=== PATIENT | male | born 1930 | race Caucasian/White ===

== ENCOUNTER → 2017-03-26 | Day surgery (SDC) | payer MEDICARE, BC ==
[~2017-03-26] VITALS: Ht 185.4 cm; Wt 93.0 kg
[~2017-03-26] MED LIST: ALPRAZOLAM0.5 M1 PO; ATIVAN0.5 MG PO; COZAAR50 M1 PO; CYMBALTA60 MG PO; Diltiazem180 MG PO; ELIQUIS2.5 M1 PO; ELIQUIS5 M1 PO; FLOMAX0.4 MG PO; LOPRESSOR100 M1 PO; METFORMIN500 MG PO; OXYBUTYNIN CHLOR5 MG PO; RANITIDINE HCL150 M1 PO; TOPROL XL100 MG PO; VITAMIN D50000 UNIT PO
--- NOTE | ~2017-03-26 | O ---
[place], [place] OPERATIVE NOTE NAME: ADWOA TOUSSAINT UNIT #: [id number] ROOM: DOCTOR: DEVIN MORGAN MD BIRTHDATE: [birth year] DOS: 03/26/2017 PREOPERATIVE DIAGNOSIS: Cataract, right eye. POSTOPERATIVE DIAGNOSIS: Cataract, right eye. OPERATION: Extracapsular cataract extraction by phacoemulsification with posterior chamber intraocular lens implantation, right eye. ANESTHESIA: Monitored standby. OPERATIVE FINDINGS AND PROCEDURE: 2% Xylocaine topical anesthetic gel was applied to the eye in the preop area. The patient was taken to the operating room and prepped and draped in the standard fashion for sterile intraocular surgery. A time out procedure was performed verifying correct patient, correct site and corrects lens with Payam Morgan M.D. The operating microscope was swung into position and the lid speculum was inserted. Using a Radha paracentesis blade, a paracentesis was made through clear cornea. Viscoelastic was used to fill the anterior chamber. Using a metal keratome a 2.4 mm self-sealing clear corneal cataract incision was made temporally at the limbus. Using a pre-bent 25 gauge cystotome needle, a standard continuous curvilinear capsulorrhexis was performed. The anterior capsule was removed with forceps. The lens nucleus was hydrodissected and phacoemulsified in the posterior chamber. Cortical material was removed with the irrigation aspiration hand piece and the posterior capsule was then polished with a curet under irrigation. The posterior chamber and capsular bag were filled with viscoelastic. A posterior chamber intraocular lens manufactured by: [employer], Model #[id number], and 14.0 diopters right eye in strength were then inserted into the posterior chamber and within the capsular bag using the lens cartridge and injector system. Viscoelastic was removed using the irrigation aspiration handpiece. The anterior chamber was filled with balanced salt solution through the paracentesis. Both the paracentesis site and cataract incisions were hydrated with BSS and verified to be water-tight and self-sealing. Cefuroxime 1 mg/1 mL was injected into the anterior chamber through the paracentesis site. The incision checked to be water-tight using a Weck-Darling sponge. The integrity of the cataract wound and ocular tension were checked. Lid speculum and drapes were removed. The patient was transferred from the operating room to the recovery room in satisfactory condition. [place], [place] OPERATIVE NOTE NAME: ADWOA TOUSSAINT UNIT #: [id number] ROOM: DOCTOR: DEVIN MORGAN MD BIRTHDATE: [birth year] DEVIN MORGAN MD CM:OPRECORD:OPERATIVE NOTE [id number] DEVIN MORGAN MD 03/26/17 1330 interface
[2017-03-26 09:40] VITALS: BP 133/86
[2017-03-26 10:48] VITALS: BP 131/82
[2017-03-26 11:03] VITALS: BP 122/74
[2017-03-26 11:17] VITALS: BP 124/64
== END | disposition home or self-care (01) ==
LOC: SDC 03-24 13:15
DX: H26.9 Unspecified cataract (principal); I10 Essential (primary) hypertension; F41.9 Anxiety disorder, unspecified; I48.91 Unspecified atrial fibrillation; E11.9 Type 2 diabetes mellitus without complications; J44.9 Chronic obstructive pulmonary disease, unspecified; J45.909 Unspecified asthma, uncomplicated

== ENCOUNTER → 2017-04-30 | Day surgery (SDC) | payer MEDICARE, BC ==
[~2017-04-30] VITALS: Ht 182.8 cm; Wt 93.0 kg
--- NOTE | ~2017-04-30 | O ---
[place], [place] OPERATIVE NOTE [facility]SSAINT [id number] UN[facility] #: [id number] ROOM: DOCTOR: DEVIN MORGAN MD BIRTHDATE: [birth year] DOS: 04/30/2017 PREOPERATIVE DIAGNOSIS: Cataract, left eye. POSTOPERATIVE DIAGNOSIS: Cataract, left eye. OPERATION: Extracapsular cataract extraction by phacoemulsification with posterior chamber intraocular lens implantation, left eye. ANESTHESIA: Monitored standby. OPERATIVE FINDINGS AND PROCEDURE: 2% Xylocaine topical anesthetic gel was applied to the eye in the preop area. The patient was taken to the operating room and prepped and draped in the standard fashion for sterile intraocular surgery. A time out procedure was performed verifying correct patient, correct site and corrects lens with Payam Morgan M.D. The operating microscope was swung into position and the lid speculum was inserted. Using a Radha paracentesis blade, a paracentesis was made through clear cornea. Viscoelastic was used to fill the anterior chamber. Using a metal keratome a 2.4 mm self-sealing clear corneal cataract incision was made temporally at the limbus. Using a pre-bent 25 gauge cystotome needle, a standard continuous curvilinear capsulorrhexis was performed. The anterior capsule was removed with forceps. The lens nucleus was hydrodissected and phacoemulsified in the posterior chamber. Cortical material was removed with the irrigation aspiration hand piece and the posterior capsule was then polished with a curet under irrigation. The posterior chamber and capsular bag were filled with viscoelastic. A posterior chamber intraocular lens manufactured by: [employer]rett intraocular lens, Model #[id number], and 1530 diopters, left eye in strength were then inserted into the posterior chamber and within the capsular bag using the lens cartridge and injector system. Viscoelastic was removed using the irrigation aspiration handpiece. The anterior chamber was filled with balanced salt solution through the paracentesis. Both the paracentesis site and cataract incisions were hydrated with BSS and verified to be water-tight and self-sealing. Cefuroxime 1 mg/0.1 mL was injected into the anterior chamber through the paracentesis site. The incision checked to be water-tight using a Weck-Darling sponge. The integrity of the cataract wound and ocular tension were checked. Lid speculum and drapes were removed. The patient was transferred from the operating room to the recovery room in satisfactory condition. [place], [place] OPERATIVE NOTE NAME: ADWOA TOUSSAINT UNIT #: [id number] ROOM: DOCTOR: DEVIN MORGAN MD BIRTHDATE: [birth year] DEVIN MORGAN MD CM:OPRECORD:OPERATIVE NOTE [id number] DEVIN MORGAN MD 04/30/17 1530 interface
[2017-04-30 09:48] VITALS: BP 120/83
[2017-04-30 11:12] VITALS: BP 136/78
[2017-04-30 11:27] VITALS: BP 136/75
[2017-04-30 11:42] VITALS: BP 145/86
== END | disposition home or self-care (01) ==
LOC: SDC 04-25 08:00
DX: H26.9 Unspecified cataract (principal); I10 Essential (primary) hypertension; E11.9 Type 2 diabetes mellitus without complications; J45.909 Unspecified asthma, uncomplicated; I48.91 Unspecified atrial fibrillation; F41.9 Anxiety disorder, unspecified; Z98.890 Other specified postprocedural states; Z85.828 Personal history of other malignant neoplasm of skin

== ENCOUNTER → 2017-06-18 | Outpatient (CLI) | payer MEDICARE, BC | END | disposition home or self-care (01) | LOC: CARD 02:18 | DX: I08.1 Rheumatic disorders of both mitral and tricuspid valves (principal) ==

== ENCOUNTER → 2017-07-29 | Outpatient (CLI) | payer MEDICARE, BC ==
[2017-07-29 14:13] LABS: HEMATOCRIT 37.5 % (42.0-52.0); HEMOGLOBIN 12.1 g/dl (14.0-18.0); MEAN CORPUSCULAR HGB 29.4 pg (27.0-31.0); MEAN CORPUSCULAR HGB CONC 32.3 g/dl (33.0-37.0); MEAN PLATELET VOLUME 9.2 fl (9.6-12.3); NUCLEATED RED BLOOD CELL 0.1 10*3/uL (0.0-0.0); NUCLEATED RED BLOOD CELL 1.3 % (0.0-0.0); PLATELET COUNT AUTOMATED 324 10*3/uL (130-400); RED BLOOD COUNT 4.12 10*6/uL (4.50-5.90); WHITE BLOOD COUNT 6.2 10*3/uL (4.8-10.8)
[2017-07-29 14:36] LABS: ALBUMIN 3.7 gm/dl (3.1-4.5); CREATININE 1.57 mg/dL (0.70-1.30); POTASSIUM 4.2 mmol/L (3.5-5.1); TOTAL PROTEIN 6.6 gm/dL (6.4-8.2)
[2017-07-29 14:37] LABS: PLATELET SUFFICIENCY NORMAL (NORMAL); TOTAL CELLS COUNTED 100 #CELLS
[2017-07-29 14:39] LABS: POLYCHROMASIA SLIGHT
[2017-07-29 14:57] LABS: BILIRUBIN NEGATIVE (NEGATIVE); BLOOD 3+ (NEGATIVE); CLARITY SL CLOUDY (CLEAR); COLOR YELLOW (YELLOW); GLUCOSE NEGATIVE (NEGATIVE); KETONE NEGATIVE (NEGATIVE); LEUKO ESTERASE TRACE (NEGATIVE); NITRITE NEGATIVE (NEGATIVE); PH 5.5 (5.0-9.0); SPECIFIC GRAVITY 1.025 (1.005-1.030); UROBILINOGEN 0.2 E.U./dl (0.2-1.0)
[2017-07-29 15:09] LABS: RBC TNTC rbc/hpf (0-2)
[2017-07-29 15:11] LABS: BACTERIA TRACE
== END | disposition home or self-care (01) ==
LOC: LAB 13:34 → CT 14:00
PROVIDERS: Urology
DX: Z12.5 Encounter for screening for malignant neoplasm of prostate (principal); N20.0 Calculus of kidney; K57.30 Diverticulosis of large intestine without perforation or abscess without bleeding; D40.0 Neoplasm of uncertain behavior of prostate; I48.91 Unspecified atrial fibrillation; N39.0 Urinary tract infection, site not specified; M47.896 Other spondylosis, lumbar region

== ENCOUNTER → 2018-03-03 | Outpatient (CLI) | payer MEDICARE, BC | END | disposition home or self-care (01) | LOC: RAD 03:56 | DX: R06.02 Shortness of breath (principal) ==

== ENCOUNTER → 2018-10-22 | Outpatient (CLI) | payer MEDICARE, BC ==
[2018-10-22 09:07] LABS: HEMATOCRIT 39.3 % (42.0-52.0); HEMOGLOBIN 12.1 g/dl (14.0-18.0); MEAN CELL VOLUME 91.8 fl (80.0-94.0); MEAN CORPUSCULAR HGB 28.3 pg (27.0-31.0); MEAN CORPUSCULAR HGB CONC 30.8 g/dl (33.0-37.0); MEAN PLATELET VOLUME 9.8 fl (9.6-12.3); NUCLEATED RED BLOOD CELL 0.1 10*3/uL (0.0-0.0); NUCLEATED RED BLOOD CELL 2.1 % (0.0-0.0); RED BLOOD COUNT 4.28 10*6/uL (4.50-5.90); WHITE BLOOD COUNT 5.2 10*3/uL (4.8-10.8)
[2018-10-22 09:31] LABS: ALBUMIN 3.6 gm/dl (3.1-4.5); CREATININE 1.75 mg/dL (0.70-1.30); POTASSIUM 3.9 mmol/L (3.5-5.1); TOTAL PROTEIN 6.9 gm/dL (6.4-8.2)
== END | disposition home or self-care (01) ==
LOC: LAB 01:02
PROVIDERS: Family Medicine
DX: E78.00 Pure hypercholesterolemia, unspecified (principal); D64.9 Anemia, unspecified; N18.3 Chronic kidney disease, stage 3 (moderate); N21.0 Calculus in bladder

== ENCOUNTER → 2019-04-14 | Outpatient (CLI) | payer MEDICARE, BC ==
[2019-04-14 13:18] LABS: BASO # 0.1 10*3/uL (0.0-0.1); BASO % 0.6 % (0.0-1.0); EOS % 0.2 % (1.0-4.0); HEMATOCRIT 37.8 % (42.0-52.0); LYMPH # 0.7 10*3/uL (1.3-4.4); MEAN CELL VOLUME 88.3 fl (80.0-94.0); MEAN CORPUSCULAR HGB CONC 31.7 g/dl (33.0-37.0); MEAN PLATELET VOLUME 10.1 fl (9.6-12.3); MONO # 1.2 10*3/uL (0.1-1.0); MONO % 8.6 % (3.0-9.0); NEUT % 83.6 % (47.0-73.0); NUCLEATED RED BLOOD CELL 0.1 % (0.0-0.0); PLATELET COUNT AUTOMATED 530 10*3/uL (130-400); RED BLOOD COUNT 4.28 10*6/uL (4.50-5.90); RED CELL DISTRI WIDTH 17.7 % (0-14.5); WHITE BLOOD COUNT 14.3 10*3/uL (4.8-10.8)
[2019-04-14 13:51] LABS: ALBUMIN 2.8 gm/dl (3.1-4.5); CREATININE 1.55 mg/dL (0.70-1.30); POTASSIUM 3.8 mmol/L (3.5-5.1); TOTAL PROTEIN 6.4 gm/dL (6.4-8.2)
== END | disposition home or self-care (01) ==
LOC: LAB 12:16
PROVIDERS: Urology
DX: I10 Essential (primary) hypertension (principal)

== ENCOUNTER → 2019-08-19 | Outpatient (CLI) | payer MEDICARE, BC ==
[2019-08-19 09:38] LABS: CREATININE 1.5 mg/dL (0.70-1.30); POTASSIUM 3.9 mmol/L (3.5-5.1)
== END | disposition home or self-care (01) ==
LOC: LAB 00:56
PROVIDERS: Surgery Vascular Surgery
DX: N18.9 Chronic kidney disease, unspecified (principal)

== ENCOUNTER → 2019-08-26 | Outpatient (CLI) | payer MEDICARE, BC ==
[2019-08-26 09:43] LABS: CREATININE 1.59 mg/dL (0.70-1.30)
== END | disposition home or self-care (01) ==
LOC: LAB 00:14
PROVIDERS: Surgery Vascular Surgery
DX: I73.9 Peripheral vascular disease, unspecified (principal)

== ENCOUNTER → 2020-06-13 | Outpatient (CLI) | payer MEDICARE, BC | END | disposition home or self-care (01) | LOC: RAD 06-12 10:36 | DX: M47.812 Spondylosis without myelopathy or radiculopathy, cervical region (principal); M50.30 Other cervical disc degeneration, unspecified cervical region; M48.02 Spinal stenosis, cervical region; M26.629 Arthralgia of temporomandibular joint, unspecified side ==

== ENCOUNTER 2020-09-11 14:35 | Inpatient (IN) | payer MEDICARE, BC ==
[~2020-09-11] VITALS: Ht 6217 cm; Wt 93.0 kg
[2020-09-11 15:03] LABS: BASO # 0.1 10*3/uL (0.0-0.1); EOS % 0.1 % (1.0-4.0); HEMATOCRIT 36.1 % (42.0-52.0); LYMPH # 0.3 10*3/uL (1.3-4.4); LYMPH % 3.6 % (27.0-41.0); MEAN CELL VOLUME 91.6 fl (80.0-94.0); MEAN CORPUSCULAR HGB 27.9 pg (27.0-31.0); MEAN CORPUSCULAR HGB CONC 30.5 g/dl (33.0-37.0); MEAN PLATELET VOLUME 9.5 fl (9.6-12.3); MONO # 0.5 10*3/uL (0.1-1.0); MONO % 5.5 % (3.0-9.0); NEUT # 7.4 10*3/uL (2.3-7.9); NEUT % 87.9 % (47.0-73.0); NUCLEATED RED BLOOD CELL 0.5 % (0.0-0.0); PLATELET COUNT AUTOMATED 358 10*3/uL (130-400); RED BLOOD COUNT 3.94 10*6/uL (4.50-5.90); RED CELL DISTRI WIDTH 18.7 % (0-14.5); WHITE BLOOD COUNT 8.4 10*3/uL (4.8-10.8)
[2020-09-11 15:20] VITALS: BP 122/70
[2020-09-11 15:21] LABS: INTERNATIONAL NORM RATIO 1.2 (2.0-3.5)
[2020-09-11 15:28] LABS: ALBUMIN 3.6 gm/dl (3.1-4.5); CREATININE 1.65 mg/dL (0.70-1.30)
[2020-09-11 15:36] LABS: TROPONIN I 0.075 ng/ml (<0.045)
--- NOTE | 2020-09-11 16:49 | NUR ---
PT RESTING IN BED. PROVIDED URINAL
[2020-09-11 17:21] VITALS: BP 146/74
--- NOTE | 2020-09-11 17:38 | NUR ---
A 89, admitted to , under the services of Dr. KENDRICK WORTHINGTON,YVETTE Rivera with a diagnosis of CHF. Chief complaint is SHORTNESS OF BREATH, LEG SWELLING. Patient arrived via bed from ER. Monitor applied. Initial assessment completed. Vital signs taken and recorded. DR. KENDRICK WORTHINGTON,YVETTE Rivera notified of admission to the unit. Orders received. See assessment for past medical history, medications and allergies. Patient and/or family oriented to unit. [facility] visitation policy reviewed. Clothing/patient valuable form completed. JOSS CURTIS
[2020-09-11 17:45] VITALS: BP 148/75
--- NOTE | 2020-09-11 18:15 | NUR ---
NOTIFIED OF + TROPONINS.
[2020-09-11] MEDS ORDERED: INDOCIN50 M2 PO (18:17)
[2020-09-11] MEDS ORDERED: LASIX40 MG PO (18:17)
[2020-09-11] MEDS ORDERED: DILTIAZEM CD240 MG PO (18:18)
[2020-09-11] MEDS ORDERED: QUETIAPINE FUM100 M1 PO (18:18)
--- NOTE | 2020-09-11 18:55 | NUR ---
LEFT MESSAGE FOR REGARDING CONSULT.
[2020-09-11 20:00] VITALS: BP 141/70
--- NOTE | 2020-09-11 21:09 | NUR ---
PAGED DR MAZARIEGOS REGARDING CRITICAL TROPONIN
--- NOTE | 2020-09-11 21:12 | NUR ---
DR. MAZARIEGOS RETURNED CALL AND NOTIFIED OF CRITICAL TROPONINS. STATED UNLESS IT IS GREATER THAN 0.1 THERE IS NO NEED TO CALL HIM. NOTIFY HIM IF IT IS GREATER THAN O.1 OR IF THE PATIENT IS SYMPTOMATIC.
--- NOTE | 2020-09-11 22:11 | NUR ---
DR. MAZARIEGOS NOT NOTIFIED OF CRITICAL TROPONIN D/T HIS REQUEST NOT TO BE NOTIFIED IF < 0.1.
[2020-09-12] VITALS: BP 124/61
--- NOTE | 2020-09-12 02:22 | NUR ---
critical troponin of 0.082. DR. MAZARIEGOS NOT NOTIFIED D/T HIS REQUEST.
[2020-09-12 06:54] LABS: CREATININE 1.57 mg/dL (0.70-1.30); POTASSIUM 3.8 mmol/L (3.5-5.1)
--- NOTE | 2020-09-12 07:49 | NUR ---
PHYSICAL THERAPY Screen received pt admitted with CHF please consult PT if pt has a decline in functional status below baseline, thank you Agatha Reagan PT
[2020-09-12 08:00] VITALS: BP 134/74
--- NOTE | 2020-09-12 10:30 | NUR ---
[employer] in to talk to patient. Patient states lives at home with his . There are 0 steps in the home. Physician: Dr. Bruce Yap Pharmacy: [facility] Home health services: none Patient's level of ADLs: INDEPENDENT Patient has working utilities: yes DME: cane (no use), walker in the back of the car, O2 @ 2L [place], portable O2 tanks, O2 supplier [facility] Follow-up physician's appointment after d/c: he prefers to make his own follow up appt after discharge Does patient want to access PORTAL?: no Discharge plan discussed with patient. He lives at home with his . He states he is independent in his ADLs and ambulation but has a cane and a walker if needed. He states he has prepared for this day. His living arrangements are all on the first floor of his home. There is a half bath off of his bedroom and another full bath on the same level. There are handrails in different places in the home. Discussed home health care services and he declines. CM will continue to follow for any discharge planning needs. When medically stable he will be discharged to home. He states his will provide transportation on discharge. SHASHI KELLY
[2020-09-12 12:00] VITALS: BP 123/58
--- NOTE | 2020-09-12 12:58 | NUR ---
Nursing screen received and chart reviewed. Patient admitted from home with CHF. If patient has a decline in ADLs, transfers, or mobility, please consult OT. Thank you. Emma Rubio, OTR/L
[2020-09-12 16:00] VITALS: BP 139/74
[2020-09-12 20:00] VITALS: BP 103/60
[2020-09-13] VITALS: BP 103/58
[2020-09-13 08:00] VITALS: BP 130/66
--- NOTE | 2020-09-13 09:00 | NUR ---
CM in to see patient. No new needs or request at this time. Discussed home health care services and he declines. CM will continue to follow for any discharge planning needs. When medically stable he will be discharged to home.
--- NOTE | 2020-09-13 10:00 | NUR ---
INFORMED CONSENT SIGNED FOR LEXISCAN STRESS TEST WITH DR. WONG. RESTING EKG AFIB WITH PVC, HR 81, BP 124/68. PULSE OX 95% ON 3L/NC AND LUNG SOUNDS DEMINISHED BILATERALLY. COMPLETED ONE MINUTE OF LEXISCAN PROTOCOL RECEIVING LEXISCAN 0.MG OVER 10 SECONDS. RARE PVC NOTED WITH NO ST CHANGES. PT HAD NO C/O. LAST RECOVERY HR 88, BP 110/60. WAITING NUCLEAR SCANNING IN STABLE CONDITION.
[2020-09-13 12:00] VITALS: BP 113/64
[2020-09-13 12:28] LABS: CREATININE 1.67 mg/dL (0.70-1.30); POTASSIUM 3.7 mmol/L (3.5-5.1)
[2020-09-13 16:00] VITALS: BP 118/71
[2020-09-13 20:00] VITALS: BP 137/66
--- NOTE | 2020-09-13 21:20 | NUR ---
PATIENT REQUESTING SOMETHING FOR INSOMNIA. ORDER RECIEVED.
--- NOTE | 2020-09-13 22:59 | NUR ---
AMBIEN GIVEN PER ORDER FOR INSOMNIA. SEE MAR.
--- NOTE | 2020-09-13 23:55 | NUR ---
VITALIY EFFECTIVE PATIENT SLEEPING.
[2020-09-14] VITALS: BP 105/57; BP 98/46
--- NOTE | 2020-09-14 02:10 | NUR ---
24 HR chart check completed.
[2020-09-14 08:00] VITALS: BP 136/76
--- NOTE | 2020-09-14 08:00 | NUR ---
IN TO ROOM. PATIENT AWAKE, ALERT AND ORIENTED. PT COMPLAINS OF SORENESS DUE TO THE BED. NO OTHER STATED COMPLAINTS. 3L NASAL CANNULA INTACT. NO SOB NOTED AT REST. RESPIRATIONS ARE EASY AND REGULAR. PT ABLE TO RESPOSITION SELF AND IS ENCOURAGED TO DO SO.
[2020-09-14 12:00] VITALS: BP 118/72
--- NOTE | 2020-09-14 13:56 | NUR ---
PT REQUESTED TYLENOL FOR HIS BODY SORENESS. DR. MARKS NOTIFIED. NO NEW ORDERS.
--- NOTE | 2020-09-14 15:45 | NUR ---
Discharge instructions reviewed with patient/family. Patient receptive and verbalizes understanding. Follow-up care arranged. Written instructions given to patient/family. GLADIS MILLER
== END 2020-09-14 16:09 | disposition home or self-care (01) | DRG 291 ==
LOC: ED 14:35 → EDHOLD 16:27 → 5E 16:27
PROVIDERS: Family Medicine; Student in an Organized Health Care Education/Training Program; ADMIT Internal Medicine; ATTEND Internal Medicine
PROC: 4A02XM4 Measurement of Cardiac Total Activity, External Approach (ICD-10-PCS; principal; 2020-09-13)
PROC: 3E073KZ Introduction of Other Diagnostic Substance into Coronary Artery, Percutaneous Approach (ICD-10-PCS; principal; 2020-09-13)
DX: I13.0 Hypertensive heart and chronic kidney disease with heart failure and stage 1 through stage 4 chronic kidney disease, or unspecified chronic kidney disease (principal); I50.33 Acute on chronic diastolic (congestive) heart failure; I48.21 Permanent atrial fibrillation; F33.9 Major depressive disorder, recurrent, unspecified; N18.30 Chronic kidney disease, stage 3 unspecified; E11.22 Type 2 diabetes mellitus with diabetic chronic kidney disease; F41.1 Generalized anxiety disorder; N40.1 Benign prostatic hyperplasia with lower urinary tract symptoms; R33.8 Other retention of urine; E11.51 Type 2 diabetes mellitus with diabetic peripheral angiopathy without gangrene; K21.9 Gastro-esophageal reflux disease without esophagitis; E87.8 Other disorders of electrolyte and fluid balance, not elsewhere classified; D64.9 Anemia, unspecified; Z88.8 Allergy status to other drugs, medicaments and biological substances; Z82.3 Family history of stroke; Z90.49 Acquired absence of other specified parts of digestive tract; Z87.11 Personal history of peptic ulcer disease; Z79.899 Other long term (current) drug therapy

== ENCOUNTER 2021-04-02 13:08 | Inpatient (IN) | payer MEDICARE, BC ==
[~2021-04-02] VITALS: Ht 177.8 cm; Wt 74.8 kg
[2021-04-02 13:08] VITALS: BP 120/73
[~2021-04-02 13:08] MED LIST changes: +DILTIAZEM CD240 MG PO; +INDOCIN50 M2 PO; +LASIX40 MG PO; +QUETIAPINE FUM100 M1 PO
[2021-04-02 13:47] LABS: HEMATOCRIT 37.7 % (42.0-52.0); MEAN CELL VOLUME 94.7 fl (80.0-94.0); MEAN CORPUSCULAR HGB 28.1 pg (27.0-31.0); MEAN CORPUSCULAR HGB CONC 29.7 g/dl (33.0-37.0); MEAN PLATELET VOLUME 11.1 fl (9.6-12.3); NUCLEATED RED BLOOD CELL 0.2 10*3/uL (0.0-0.0); NUCLEATED RED BLOOD CELL 1.2 % (0.0-0.0); PLATELET COUNT AUTOMATED 392 10*3/uL (130-400); RED BLOOD COUNT 3.98 10*6/uL (4.50-5.90); RED CELL DISTRI WIDTH 19.3 % (0-14.5); WHITE BLOOD COUNT 13.1 10*3/uL (4.8-10.8)
[2021-04-02 13:58] LABS: ACT PARTIAL THROMBO TIME 41.6 SECONDS (20.0-32.1); INTERNATIONAL NORM RATIO 1.3 (2.0-3.5)
[2021-04-02 14:03] LABS: BASOPHILS 2 % (0-1); BURR CELLS FEW; OVALOCYTES FEW; PLATELET SUFFICIENCY NORMAL (NORMAL); POLYCHROMASIA SLIGHT; SCHISTOCYTES FEW; TOTAL CELLS COUNTED 100 #CELLS
[2021-04-02 14:04] LABS: ALBUMIN 3.5 gm/dl (3.1-4.5); CREATININE 2.12 mg/dL (0.70-1.30); POTASSIUM 5.3 mmol/L (3.5-5.1); TOTAL PROTEIN 7.2 gm/dL (6.4-8.2)
[2021-04-02 14:11] LABS: TROPONIN I 0.07 ng/ml (<0.045)
[2021-04-02 14:27] VITALS: BP 130/80
[2021-04-02] MEDS ORDERED: LASIX20 MG PO (17:06)
[2021-04-02] MEDS ORDERED: POTASSIUM CHLO20 ME4 PO (17:07)
[2021-04-02] MEDS ORDERED: MELATONIN5 M6 PO (17:08)
[2021-04-02] MEDS ORDERED: VALIUM2 MG PO (17:09)
[2021-04-02 20:30] VITALS: BP 118/60
[2021-04-03] VITALS: BP 123/71
[2021-04-03] MEDS ORDERED: VITAMIN D31250 MCG PO (08:51)
[2021-04-03 10:09] LABS: BILIRUBIN Negative (Negative); BLOOD 3+ (Negative); CLARITY Cloudy (Clear); COLOR Dark Yellow (Yellow); GLUCOSE Negative (Negative); KETONE Negative (Negative); LEUKO ESTERASE Negative (Negative); NITRITE Negative (Negative)
[2021-04-03 10:21] LABS: BACTERIA 1+; HYALINE CAST 0-2; RBC TNTC rbc/hpf (0-2); WBC 0-2 wbc/hpf (0-5)
[2021-04-03 12:00] VITALS: BP 108/74
[2021-04-03 16:00] VITALS: BP 110/61
[2021-04-03 20:00] VITALS: BP 106/61
[2021-04-04] VITALS: BP 117/65
[2021-04-04 06:41] LABS: BASO # 0.1 10*3/uL (0.0-0.1); BASO % 0.5 % (0.0-1.0); HEMATOCRIT 36.2 % (42.0-52.0); LYMPH # 0.5 10*3/uL (1.3-4.4); LYMPH % 3.2 % (27.0-41.0); MEAN CELL VOLUME 94.3 fl (80.0-94.0); MEAN CORPUSCULAR HGB 28.4 pg (27.0-31.0); MEAN CORPUSCULAR HGB CONC 30.1 g/dl (33.0-37.0); MEAN PLATELET VOLUME 10.6 fl (9.6-12.3); MONO # 1.1 10*3/uL (0.1-1.0); MONO % 7.9 % (3.0-9.0); NEUT # 12.5 10*3/uL (2.3-7.9); NEUT % 86.9 % (47.0-73.0); NUCLEATED RED BLOOD CELL 0.1 10*3/uL (0.0-0.0); NUCLEATED RED BLOOD CELL 0.4 % (0.0-0.0); PLATELET COUNT AUTOMATED 378 10*3/uL (130-400); RED BLOOD COUNT 3.84 10*6/uL (4.50-5.90); RED CELL DISTRI WIDTH 19.1 % (0-14.5); WHITE BLOOD COUNT 14.3 10*3/uL (4.8-10.8)
[2021-04-04 06:49] LABS: CREATININE 2.11 mg/dL (0.70-1.30); POTASSIUM 5.1 mmol/L (3.5-5.1)
[2021-04-04 08:00] VITALS: BP 109/51
[2021-04-04 12:00] VITALS: BP 108/59
[2021-04-04 16:00] VITALS: BP 115/52
[2021-04-04 20:00] VITALS: BP 112/60
[2021-04-05] VITALS: BP 120/64
[2021-04-05 08:00] VITALS: BP 121/62
== END 2021-04-05 09:10 | DRG 291 ==
LOC: ED 13:08 → 4E 16:40 → EDHOLD 16:40 → 4E 19:52
PROVIDERS: Emergency Medicine; ADMIT Internal Medicine; ATTEND Internal Medicine
PROC: 4A02XM4 Measurement of Cardiac Total Activity, External Approach (ICD-10-PCS; principal; 2021-04-03)
PROC: 3E073KZ Introduction of Other Diagnostic Substance into Coronary Artery, Percutaneous Approach (ICD-10-PCS; 2021-04-03)
DX: I50.33 Acute on chronic diastolic (congestive) heart failure (principal); J96.21 Acute and chronic respiratory failure with hypoxia; I48.21 Permanent atrial fibrillation; R18.8 Other ascites; N17.9 Acute kidney failure, unspecified; I27.20 Pulmonary hypertension, unspecified; J44.9 Chronic obstructive pulmonary disease, unspecified; N18.31 Chronic kidney disease, stage 3a; E11.22 Type 2 diabetes mellitus with diabetic chronic kidney disease; S81.802A Unspecified open wound, left lower leg, initial encounter; I48.0 Paroxysmal atrial fibrillation; E87.5 Hyperkalemia; Z66 Do not resuscitate; Z51.5 Encounter for palliative care; N40.1 Benign prostatic hyperplasia with lower urinary tract symptoms; F32.9 Major depressive disorder, single episode, unspecified; I07.1 Rheumatic tricuspid insufficiency; S81.801A Unspecified open wound, right lower leg, initial encounter; X58.XXXA Exposure to other specified factors, initial encounter; Y93.89 Activity, other specified; Y92.89 Other specified places as the place of occurrence of the external cause; Y99.8 Other external cause status; Z88.8 Allergy status to other drugs, medicaments and biological substances; Z82.3 Family history of stroke; Z79.01 Long term (current) use of anticoagulants; Z78.9 Other specified health status; Z68.23 Body mass index [BMI] 23.0-23.9, adult